=== PATIENT | female | born 1995 | race Caucasian/White ===

== ENCOUNTER 2020-04-04 16:55 | Emergency (ER) | payer SELFPAY ==
[~2020-04-04] VITALS: Ht 165.1 cm; Wt 68.0 kg
[2020-04-04 17:00] VITALS: BP_SYST 112
--- NOTE | 2020-04-04 18:10 | NUR ---
PLACED IN FAST TRACK 4
--- NOTE | 2020-04-04 18:12 | NUR ---
Patient to ER Fast Track to gown for evaluation. Side rails up.
--- NOTE | 2020-04-04 18:15 | NUR ---
Dr. Mcfadden chair side for pt bibiana
--- NOTE | 2020-04-04 18:20 | NUR ---
Pt BIB family to ED seeking evaluation of a 2-day history of vaginal bleeding associated with cramping. Per patient, bleeding is heavy compared to that typically experienced with menstrual cycle. No relieving or exacerbating factors. She denies any fever, chills, urinary symptoms, vaginal discharge, or any injury or trauma.
[2020-04-04 18:46] LABS: BILIRUBIN,URINE NEGATIVE (NEGATIVE); BLOOD, URINE 3+ (NEGATIVE); GLUCOSE,URINE NEGATIVE (NEGATIVE); KETONES,URINE 1+ (NEGATIVE); LEUKOCYTE ESTERASE ,URINE TRACE (NEGATIVE); NITRITE, URINE NEGATIVE (NEGATIVE); PH,URINE 7.5 (5.0-8.0); PROTEIN URINE 1+ (NEGATIVE)
[2020-04-04 18:46] LABS: BASOPHILS % (AUTO) 0.4 % (0.0-2.0); EOSINOPHILS # (AUTO) 0.5 K/uL (0.0-0.4); EOSINOPHILS % (AUTO) 4.7 % (0.0-4.0); HEMATOCRIT 42.9 % (36-48); HEMOGLOBIN 14.9 g/dL (12.0-16.0); LYMPHOCYTES # (AUTO) 3.1 K/uL (1.0-5.5); LYMPHOCYTES % (AUTO) 27.8 % (20.5-51.5); MEAN CORPUSCULAR HEMOGLOBIN 31 pg (27-31); MEAN CORPUSCULAR HGB CONC 35 % (32-36); MEAN CORPUSCULAR VOLUME 90 fL (79.0-98.0); MONOCYTES # (AUTO) 0.6 K/uL (0.0-1.0); MONOCYTES % (AUTO) 5.6 % (1.7-9.3); NEUTROPHILS # (AUTO) 6.8 K/uL (1.8-7.7); NEUTROPHILS % (AUTO) 61.5 % (40.0-70.0); PLATELET COUNT (AUTO) 314 K/uL (130-430); RED BLOOD CELL COUNT(AUTO) 4.75 MIL/uL (4.2-6.2); RED CELL DISTRIBUTION WIDTH 12.8 % (9.0-15.0)
[2020-04-04 18:49] LABS: CALCIUM 9.6 mg/dL (8.4-11.0); CREATININE 0.93 mg/dL (0.55-1.30)
[2020-04-04 18:54] LABS: CLARITY/URINE HAZY (CLEAR); COLOR,URINE RED (YELLOW)
[2020-04-04 18:55] LABS: BACTERIA,URINE FEW /HPF (None Seen)
[2020-04-04 18:56] LABS: MUCUS,URINE None Seen /LPF (None Seen)
[2020-04-04 19:00] LABS: ALBUMIN 4.2 g/dL (3.4-4.8); TOTAL BILIRUBIN 0.3 mg/dL (0.0-1.0)
[2020-04-04] MEDS ORDERED: NAPR-690 PO (19:04)
[2020-04-04 19:05] VITALS: BP_SYST 112
--- NOTE | 2020-04-04 19:05 | NUR ---
Patient given written and verbal discharge instructions and verbalizes understanding. ER MD discussed with patient the results and treatment provided. Patient in stable condition. ID arm band removed. Patient educated on pain management and to follow up with PMD. Pain Scale 0/10 Opportunity for questions provided and answered
== END 2020-04-04 19:05 | disposition home or self-care (01) ==
LOC: SED 16:55
DX: N94.6 Dysmenorrhea, unspecified (principal); Z79.899 Other long term (current) drug therapy
CPT/HCPCS: 36415; 76856-TC; 80053; 81000-TC; 81025; 85025; 99284